=== PATIENT | female | born 1935 | race Caucasian/White ===

== ENCOUNTER 2018-02-27 20:52 | Emergency (ER) | payer OTHER ==
[2018-02-27] MEDS ORDERED: NA CHLORIDE 0.9% 500 ML ONE (21:20)
[2018-02-27 21:40] LABS: Absolute Lymphocytes (CBC) 1.8 K/uL (0.7-4.9); Absolute Monocytes 1.2 K/uL (0.1-1.3); Absolute Neutrophil 5.8 K/uL (1.8-8.0); Basophils % 0.9 % (0-1.3); Eosinophils % 1.6 % (0-4.4); Hematocrit 28.1 % (36.0-45.0); MCH 34.2 pg (27.0-35.0); MCV 102.7 fL (80-100); MPV 9.9 fL (7.6-11.3); Monocytes % 13.3 % (3.3-12.3); RBC Red Blood Cell Count 2.74 M/uL (3.86-4.86)
--- NOTE | 2018-02-27 21:49 | RAD REPORT ---
EXAM DESCRIPTION: RAD - Chest Single View - 02/27/2018 9:41 pm CLINICAL HISTORY: Fever, shortness of breath COMPARISON: March 2016 TECHNIQUE: AP portable chest image was obtained 2130 hours . FINDINGS: No peripheral mass or consolidation. Interstitial markings are prominent but not clearly d ifferent from comparison. Severity chronic disease could mask early infiltrates. Heart and vasculatur e are normal. No measurable pleural effusion and no pneumothorax. No gross bony abnormality seen. No acute aortic findings suspected. IMPRESSION: No acute cardiopulmonary process. Interstitial markings are not substantially different from comparison. Severity of chronic interstitial disease can mask early infiltrates.
[2018-02-27 21:50] LABS: Potassium 3.6 mEq/L (3.6-5.0)
--- NOTE | 2018-02-27 21:55 | RAD REPORT ---
EXAM DESCRIPTION: CT - Facial Bones W/ Mpr - 02/27/2018 9:32 pm CLINICAL HISTORY: Fall, left-sided facial trauma, anticoagulation therapy COMPARISON: None. TECHNIQUE: Axial 2 millimeter thick images of the facial bones were obtained with sagittal and coron al reconstruction imaging. All CT scans are performed using dose optimization technique as appropriate and may include automated exposure control or mA/KV adjustment according to patient size. FINDINGS: No facial bone fractures are identifiable. Mastoid air cells are clear. Paranasal sinuses are fully aerated. There is mild deviation of the left nasal septum. No globe or orbital content abno rmality seen. Condyles of the mandible are normally positioned. There is significant degenerative terry nge to each mandibular condyles. No air or foreign body. No significant contusion or hematoma changes identifiable in the soft tissues. No foreign body. IMPRESSION: No facial bone fracture or acute bone process. Advanced degenerative change at each TM j oint. No hematoma or other significant soft tissue finding. No foreign body.
--- NOTE | 2018-02-27 22:34 | ER ---
Nurse's Notes [facility] Name: Chen Zaldivar Age: 83 yrs Sex: Female : 1935 Arrival Date: 02/27/2018 Time: 20:56 Bed 27 Private MD: Diagnosis: Contusion left side face. S/P Fall. Fever. Presentation: 02/27 21:03 Presenting complaint: Patient states: this morning I had a fall from standing, pt la1 denies loc, is on blood thinners. pain to left side of face. Presenting complaint: Patient states: pt also reports fever tonight of 101 at home, tylenol taken at 1930. Transition of care: patient was not received from another setting of care. Onset of symptoms was February 27, 2018. Initial Sepsis Screen: Does the patient meet any 2 criteria? No. Patient's initial sepsis screen is negative. Does the patient have a suspected source of infection? No. Patient's initial sepsis screen is negative. Care prior to arrival: None. 21:03 Method Of Arrival: Wheelchair la1 21:03 Acuity: HAYDEN 3 la1 21:10 Mechanism of Injury: Fall from standing position. Trauma event details: Injury occurred lk1 in the [facility], Injury occurred: at home. Injury occurred: February 27, 2018 Injury occurred at: 09:30. Trauma Activation: Alert Physician: ED Physician; Name: ; Notified At: ; Arrived At: Physician: General Surgeon; Name: ; Notified At: ; Arrived At: Physician: Radiology; Name: ; Notified At: ; Arrived At: Physician: Respiratory; Name: ; Notified At: ; Arrived At: Physician: Lab; Name: ; Notified At: ; Arrived At: Historical: - Allergies: 21:07 Codeine; la1 21:07 Novocain; la1 21:07 Lidocaine; la1 - PMHx: 21:07 Hyperlipidemia; Hypertension; multiple myeloma; la1 - Immunization history:: Adult Immunizations up to date. - Social history:: Smoking status: Patient/guardian denies using tobacco. - Immunization history: Last tetanus immunization: - up to date. Screenin:10 Abuse screen: Denies threats or abuse. Denies injuries from another. Nutritional lk1 screening: No deficits noted. Tuberculosis screening: No symptoms or risk factors identified. Fall risk At risk due to age, immobility, prior history of falls, Intervention for positive screen: ED Physician notified, instructed to call for assist when getting up, side rails up. 21:10 Fall Risk Total Guillory Fall Scale indicates High Risk Score (45 or more points). Fall lk1 prevention measures have been instituted. Side Rails Up X 2 Placed Close to Nursing Station Frequent Obs/Assessments Occuring Family Present and informed to notify staff if the need to leave the bedside As available patient and family educated on Fall Prevention Program and Strategies. 21:10 Nutritional screening: No deficits noted. lk1 Primary Survey: 21:00 A: Airway: patent. Breathing/Chest: Respiratory pattern: regular, Respiratory effort: lk1 spontaneous, unlabored, Breath sounds: clear, bilaterally. Chest inspection: symmetrical rise and fall of the chest. Circulation: Heart tones present. Pulses: palpable right brachial artery, right dorsalis pedis artery, left brachial artery and left dorsalis pedis artery. Disability Alert. 21:10 Reassessment Airway Airway Patent Breathing/Chest Respiratory pattern Regular lk1 Respiratory effort Spontaneous Unlabored Circulation Heart rhythm Sinus rhythm Heart tones Present Pulses Palpable Color Mc[place] Temperature Warm Dry Disability Alert. Secondary Survey: 21:02 HEENT: Face Other pea sized abrasion to left cheekbone below left eye. lk1 Gastrointestinal: No deficits noted. : No deficits noted. Musculoskeletal: Swelling present in dorsum of right foot. Assessment: 21:05 General: Appears in no apparent distress. Behavior is calm, cooperative, appropriate lk1 for age. Pain: Denies pain. Vital Signs: 21:01 BP 156 / 63; Pulse 68; Resp 16; Temp 97.7(TE); Pulse Ox 96% on R/A; lk1 22:00 BP 148 / 62; Pulse 65; Resp 15; Pulse Ox 99% on R/A; Weight 71.67 kg (R); Height 5 ft. lk1 5 in. (165.10 cm) (R); Pain 0/10; 22:55 BP 145 / 59; Pulse 69; Resp 16; Temp 98.4(O); Pulse Ox 97% on R/A; Pain 0/10; lk1 22:00 Body Mass Index 26.29 (71.67 kg, 165.10 cm) lk1 Chris Coma Score: 21:01 Eye Response: spontaneous(4). Verbal Response: oriented(5). Motor Response: obeys lk1 commands(6). Total: 15. 22:00 Eye Response: spontaneous(4). Verbal Response: oriented(5). Motor Response: obeys lk1 commands(6). Total: 15. 22:55 Eye Response: spontaneous(4). Verbal Response: oriented(5). Motor Response: obeys lk1 commands(6). Total: 15. Trauma Score (Adult): 21:01 Eye Response: spontaneous(1); Verbal Response: oriented(1); Motor Response: obeys lk1 commands(2); Systolic BP: > 89 mm Hg(4); Respiratory Rate: 10 to 29 per min(4); Chris Score: 15; Trauma Score: 12 22:00 Eye Response: spontaneous(1); Verbal Response: oriented(1); Motor Response: obeys lk1 commands(2); Systolic BP: > 89 mm Hg(4); Respiratory Rate: 10 to 29 per min(4); [place] Score: 15; Trauma Score: 12 22:55 Eye Response: spontaneous(1); Verbal Response: oriented(1); Motor Response: obeys lk1 commands(2); Systolic BP: > 89 mm Hg(4); Respiratory Rate: 10 to 29 per min(4); [place] Score: 15; Trauma Score: 12 ED Course: 20:56 Patient arrived in ED. es 20:57 John Polo MD is Attending Physician. pkl 21:00 Arm band placed on right wrist. lk1 21:05 Patient maintains SpO2 saturation greater than 95% on room air. Thermoregulation: warm lk1 blanket given to patient. 21:05 Patient has correct armband on for positive identification. Bed in low position. Call lk1 light in reach. Side rails up X2. Adult w/ patient. 21:06 Triage completed. la1 21:12 Mara Myers, JULIET is Primary Nurse. lk1 21:32 CT completed. Patient moved to CT via wheelchair. Patient moved back from CT. cw1 21:33 CT Facial Bones W/O Con In Process Unspecified. EDMS 21:33 Initial lab(s) drawn, by me, sent to lab. Inserted saline lock: 22 gauge in right dh3 antecubital area, using aseptic technique. Blood collected. 21:40 X-ray completed. Patient tolerated procedure well. bb2 21:40 Patient moved back from radiology. bb2 21:40 XRAY CXR (1 view) In Process Unspecified. EDMS 22:55 No provider procedures requiring assistance completed. IV discontinued, intact, lk1 bleeding controlled, No redness/swelling at site. Pressure dressing applied. Administered Medications: 21:45 Drug: NS 0.9% 500 ml Route: IV; Rate: 100 calculated rate; Site: right antecubital; lk1 22:00 Follow up: Response: No adverse reaction; IV Status: Completed infusion; Order to lk1 discontinue infusion Intake: 21:01 PO: 0ml; Total: 0ml. lk1 22:00 PO: 0ml; Total: 0ml. lk1 22:55 PO: 120ml; IV: 250ml (IV Fluid); Total: 370ml. lk1 Output: 21:01 Urine: 0ml; Total: 0ml. lk1 22:00 Urine: 0ml; Total: 0ml. lk1 22:55 Urine: 150ml; Total: 150ml. lk1 Outcome: 22:33 Discharge ordered by . pkcaitlin 22:56 Discharged to home via wheelchair, with family. lk1 22:56 Condition: good 22:56 Discharge instructions given to patient, family, Instructed on discharge instructions, follow up and referral plans. safety practices, Demonstrated understanding of instructions, follow-up care, medications. 22:56 Patient's length of stay was not longer than 2 hours. 22:57 Patient left the ED. lk1 Signatures: Dispatcher [employer] [facility] John Polo MD MD pkl Salyer, Edna es Woodley, Crystal 1 Jim Wiggins RN RN leah1 Mara Myers RN RN lk1 Naty Greenberg 3 Eunice Simms bb2
--- NOTE | 2018-02-27 22:34 | EDPHYS ---
Physician Documentation [facility] Name: Chen Zaldivar Age: 83 yrs Sex: Female : 1935 Arrival Date: 02/27/2018 Time: 20:56 Bed 27 Private MD: ED Physician John Polo HPI: 02/27 21:17 This 83 yrs old Female presents to ER via Wheelchair with complaints of pkl Fever, Fall Injury, Swelling of Lower Extremity. 21:17 Details of fall: The patient fell from an upright position. Onset: The symptoms/episode pkl began/occurred just prior to arrival. Associated injuries: The patient sustained injury to the head, contusion. Has fever 101 earlier today. Historical: - Allergies: 21:07 Codeine; la1 21:07 Novocain; la1 21:07 Lidocaine; la1 - PMHx: 21:07 Hyperlipidemia; Hypertension; multiple myeloma; la1 - Immunization history:: Adult Immunizations up to date. - Social history:: Smoking status: Patient/guardian denies using tobacco. - Immunization history: Last tetanus immunization: - up to date. ROS: 21:19 Eyes: Negative for injury, pain, redness, and discharge, ENT: Negative for injury, pkl pain, and discharge, Neck: Negative for injury, pain, and swelling, Cardiovascular: Negative for chest pain, palpitations, and edema, Respiratory: Negative for shortness of breath, cough, wheezing, and pleuritic chest pain. 21:19 Abdomen/GI: Positive for diarrhea. 21:19 Back: Negative for acute changes. 21:19 : Negative for urinary symptoms. 21:19 MS/extremity: Negative for acute changes. 21:19 Skin: Negative for rash. 21:19 Neuro: Negative for altered mental status. Exam: 21:19 Eyes: Pupils equal round and reactive to light, extra-ocular motions intact. Lids and pkl lashes normal. Conjunctiva and sclera are non-icteric and not injected. Cornea within normal limits. Periorbital areas with no swelling, redness, or edema. 21:19 Head/face: Noted is contusion, of the left side face. 21:19 ENT: Exam is negative for acute changes. 21:19 Neck: Exam negative for obvious evidence of injury or deformity, nuchal rigidity. 21:19 Chest/axilla: Exam negative for acute changes. 21:19 Cardiovascular: Rate: normal, Rhythm: regular. 21:19 Respiratory: the patient does not display signs of respiratory distress, Respirations: normal, Breath sounds: are clear throughout. 21:19 Abdomen/GI: Bowel sounds: normal, Palpation: abdomen is soft and non-tender, in all quadrants. 21:19 Back: Exam negative for acute changes. 21:19 : Exam negative for acute changes. 21:19 Musculoskeletal/extremity: Exam is negative for acute changes. 21:19 Skin: Exam negative for rash. 21:19 Neuro: Orientation: is normal, Mentation: is normal, Cranial nerves: grossly normal, Motor: is normal. Vital Signs: 21:01 BP 156 / 63; Pulse 68; Resp 16; Temp 97.7(TE); Pulse Ox 96% on R/A; lk1 22:00 BP 148 / 62; Pulse 65; Resp 15; Pulse Ox 99% on R/A; Weight 71.67 kg (R); Height 5 ft. lk1 5 in. (165.10 cm) (R); Pain 0/10; 22:55 BP 145 / 59; Pulse 69; Resp 16; Temp 98.4(O); Pulse Ox 97% on R/A; Pain 0/10; lk1 22:00 Body Mass Index 26.29 (71.67 kg, 165.10 cm) lk1 [place]ancock Coma Score: 21:01 Eye Response: spontaneous(4). Verbal Response: oriented(5). Motor Response: obeys lk1 commands(6). Total: 15. 22:00 Eye Response: spontaneous(4). Verbal Response: oriented(5). Motor Response: obeys lk1 commands(6). Total: 15. 22:55 Eye Response: spontaneous(4). Verbal Response: oriented(5). Motor Response: obeys lk1 commands(6). Total: 15. Trauma Score (Adult): 21:01 Eye Response: spontaneous(1); Verbal Response: oriented(1); Motor Response: obeys lk1 commands(2); Systolic BP: > 89 mm Hg(4); Respiratory Rate: 10 to 29 per min(4); [place]ancock Score: 15; Trauma Score: 12 22:00 Eye Response: spontaneous(1); Verbal Response: oriented(1); Motor Response: obeys lk1 commands(2); Systolic BP: > 89 mm Hg(4); Respiratory Rate: 10 to 29 per min(4); Chris Score: 15; Trauma Score: 12 22:55 Eye Response: spontaneous(1); Verbal Response: oriented(1); Motor Response: obeys lk1 commands(2); Systolic BP: > 89 mm Hg(4); Respiratory Rate: 10 to 29 per min(4); Chris Score: 15; Trauma Score: 12 MDM: 20:57 Patient medically screened. [facility] 22:07 Data reviewed: vital signs, nurses notes, lab test result(s), radiologic studies. [facility] 02/27 21:16 Order name: CBC with Diff; Complete Time: :58 [facility] 02/27 21:16 Order name: Chem 7; Complete Time: :58 [facility] 02/27 21:16 Order name: XRAY CXR (1 view); Complete Time: :58 [facility] 02/27 21:16 Order name: CT Facial Bones W/O Con; Complete Time: :58 [facility] 02/27 22:36 Order name: Urine Dipstick--Ancillary (enter results); Complete Time: 23:19 mw2 Administered Medications: 21:45 Drug: NS 0.9% 500 ml Route: IV; Rate: 100 calculated rate; Site: right antecubital; lk1 22:00 Follow up: Response: No adverse reaction; IV Status: Completed infusion; Order to lk discontinue infusion Disposition: 02/27/18 22:33 Discharged to Home. Impression: Contusion left side face. S/P Fall. Fever. . - Condition is Stable. - Medication Reconciliation Form, Thank You Letter, Antibiotic Education, Prescription Opioid Use form. - Follow up: Private Physician; When: 2 - 3 days; Reason: Re-evaluation by your physician. - Problem is new. - Symptoms have improved. Signatures: Dispatcher [employer] EDMS John Polo MD MD l Jim Wiggins RN RN la1 Mara Myers RN RN lk1 Corrections: (The following items were deleted from the chart) 22:57 22:33 02/27/2018 22:33 Discharged to Home. Impression: Contusion left side face. S/P lk1 Fall. Fever. . Condition is Stable. Forms are Medication Reconciliation Form, Thank You Letter, Antibiotic Education, Prescription Opioid Use. Follow up: Private Physician; When: 2 - 3 days; Reason: Re-evaluation by your physician. Problem is new. Symptoms have improved. pkl
[2018-02-27 22:41] LABS: Urine Blood TRACE (NEG); Urine Glucose NEGATIVE (NEG); Urine Protein 1+ (NEG); Urine Specific Gravity 1.015 (1.005-1.030); Urine pH 6.5 (5.0-7.0)
== END 2018-02-27 22:57 | disposition home or self-care (01) ==
LOC: ER 20:52
DX: S00.83XA Contusion of other part of head, initial encounter (principal); W18.39XA Other fall on same level, initial encounter; Y93.89 Activity, other specified; Y92.009 Unspecified place in unspecified non-institutional (private) residence as the place of occurrence of the external cause; Z88.4 Allergy status to anesthetic agent; Z88.5 Allergy status to narcotic agent; I10 Essential (primary) hypertension
CPT/HCPCS: 36415; 70486; 71045; 76377; 80048; 81003; 85025; 99285

== ENCOUNTER 2018-05-28 19:17 | Observation (INO) | payer OTHER ==
--- OUTSIDE RECORDS SUMMARY | 2018-05-28 19:20 | XMS REPORT ---
:1935 Author Organization [facility] Address [address] [place] [address] [address]. [address] [place] [address] Care Team Providers Name Role Phone UNKNOWN, REFFERING Primary Care Provider Unavailable ARGELIA MAYNARD Unavailable Unavailable Problems This patient has no known problems. Allergies, Adverse Reactions, Alerts This patient has no known allergies or adverse reactions. Medications This patient has no known medications. Encounters Start End Encounter Admission Attending Care Care Encounter Date/Time Date/Time Type Type Clinicians Facility Department ID 2018-02-03 2018-02-03 [id number] 19:25:00 19:25:00 ARGELIA 2017-09-29 2017-09-29 [id number] 21:23:00 21:23:00 ARGELIA Results Test Description Test Time Test Comments Text Results Atomic Results Result Comments D-Dimer, Quantitative 2018-02-03 22:23:00 Test Item Value Reference Range Comments D-Dimer, Quant (test code=DDQNT) 649 ng/mL 0-500 D-Dimer, [id number] 00:14:00 Test Item Value Reference Range Comments D-Dimer, Quant (test 396 ng/mL 0-500 Please note Change in unit of code=DDQNT) measure from mg/L FEU to ng/mLA cutoff of less than 500 ng/mL DD has a negative predictive value of100% for DVT gln005% for PE.When using D-Dimer to help rule out DVT or PE, clinical information anddisease probability should be considered.Elevated D-Dimer values are not specific for thromboembolism. CBC with [id number] 00:14:00 Test Item Value Reference Range Comments WBC (test code=WBC) 11.3 K/cumm 4.4-10.5 RBC (test code=RBC) 3.61 M/cumm 3.75-5.20 Hemoglobin (test code=HGB) 11.7 gm/dL 12.2-14.8 Hematocrit (test code=HCT) 37.3 % 36.5-44.4 MCV (test code=MCV) 103.3 fL 80-100 MCH (test code=MCH) 32.4 pg 27.0-32.5 MCHC (test code=MCHC) 31.3 g/dL 32.0-37.5 RDW (test code=RDW) 16.3 % 11.5-14.5 Platelet Count (test code=PLTCT) 210 K/cumm 140-440 MPV (test code=MPV) 9.1 fL Diff Method (test code=DIFFM) Auto Neutrophil (test code=NEUT) 84.7 % 36-70 Lymphocyte (test code=LYMPH) 12.5 % 12-44 Monocyte (test code=MONO) 2.6 % 0-11 Eosinophil (test code=EOS) 0.1 % 0-7 Basophil (test code=BASO) 0.1 % 0-2 Neutro Abs (test code=ANEUT) 9.6 K/cumm 1.6-7.4 Lymph Abs (test code=ALYMPH) 1.4 K/cumm 0.5-4.6 Thomas Abs (test code=AMONO) 0.3 K/cumm 0.0-1.2 Eos Abs (test code=AEOS) 0.01 K/cumm 0.00-0.74 Baso Abs (test code=ABASO) 0.0 K/cumm 0.00-0.21 Macrocytosis (test code=MACRO) Slight [id number] 00:10:00 Test Item Value Reference Range Comments NT ProBnp (test code=PBNP) 811 pg/mL 0-449 Comprehensive Metabolic [id number] 00:10:00 Test Item Value Reference Range Comments Sodium (test code=NA) 134 mmol/L 135-145 Potassium (test code=K) 4.8 mmol/L 3.5-5.1 Chloride (test code=CL) 97 mmol/L 98-105 Carbon Dioxide (test 22 mmol/L 22-29 code=CO2) Glucose (test code=GLU) 126 mg/dL 70-115 Blood Urea Nitrogen (test 35 mg/dL 8-23 code=BUN) Creatinine (test 1.7 mg/dL 0.5-0.9 code=CREAT) Calcium (test code=CA) 9.0 mg/dL 8.3-10.5 Prot Total (test code=TP) 7.4 g/dL 6.4-8.3 Albumin (test code=ALB) 4.5 g/dL 3.5-5.2 A/G Ratio (test 1.6 Ratio code=AGRATIO) Globulin (test code=GLOB) 2.9 2.9-3.1 Bili Total (test 0.6 mg/dL 0.1-0.9 code=TBIL) Alk Phos (test 99 U/L 35-104 code=APHOS) AST (test code=AST) 15 U/L 1-32 ALT (test code=ALT) 15 U/L 1-33 BUN/Creatinine Ratio 20.6 (test code=BCRATIO) Anion Gap (test 15 mmol/L 7-16 code=AGAP) Estimated GFR (test 31 mL/min/1.73m2 eGFR (estimated Glomerular code=GFR) Filtration Rate) is an estimated value,calculated from the patient's serum creatinine using the MDRD equation.It is NOT the patient's actual GFR. The eGFR provides a more clinicallyuseful measure of kidney disease than serum creatinine alone.This calculation takes sex and race into account, if the informationis provided. If the race is not provided, and the patient isAfrican-Monegasque, multiply by 1.212. If sex is not provided, and thepatient is female, multiply by 0.742. Results for patients <18 years ofage have not been validated by the MDRD study and should be interpretedwith caution.eGFR Result Interpretation:eGFR > or=60 is in the Normal RangeeGFR < 60 may mean kidney diseaseeGFR < 15 may mean kidney failureRanges recommended by the National Kidney Foundation,http://nkdep.nih .gov Lipid [id number] 00:10:00 Test Item Value Reference Range Comments Cholesterol (test 260 mg/dL 0-200 code=CHOL) Triglycerides (test 88 mg/dL 9-200 code=TRIG) HDL (test code=HDL) 111 mg/dL 50-60 Chol/HDL (test 2.3 Ratio 0.0-4.4 code=CHOLPHDL) LDL, Calculated (test 131 mg/dL 0-130 (NOTE)RISK OF HEART code=LDLC) DISEASEPublished by Monegasque Heart AssociationAnalyte Optimal Boderline Increased RiskCHOL <200 200-239 >240TRIG <150 150-199 >200HDL Male: >60 <40HDL Female: >60 <50LDL <100 130-159 >160LDL NEAR OPTIMAL IS 100-129 VLDL (test code=VLDL) 18 mg/dL 5-40 LDL/HDL (test code=LDLPHDL) 1
[2018-05-28 20:22] LABS: Absolute Lymphocytes (CBC) 1.7 K/uL (0.7-4.9); Absolute Monocytes 0.3 K/uL (0.1-1.3); Basophils % 0.3 % (0-1.3); Eosinophils % 1.3 % (0-4.4); Hematocrit 28.6 % (36.0-45.0); Lymphocytes % 33.7 % (15.3-44.8); MCH 33.3 pg (27.0-35.0); MCV 99.9 fL (80-100); MPV 9.9 fL (7.6-11.3); Monocytes % 5.3 % (3.3-12.3); RBC Red Blood Cell Count 2.86 M/uL (3.86-4.86)
[2018-05-28] MEDS ORDERED: ACETAMINOPHEN 325 MG TABLET ONE (20:24)
[2018-05-28] MEDS ORDERED: NA CHLORIDE 0.9% 1,000 ML ONE (20:24)
[2018-05-28] MEDS ORDERED: AZITHROMYCIN 500 MG/250 ML BAG ONE (20:24)
[2018-05-28 20:26] LABS: Protime INR 1.52
[2018-05-28 20:53] LABS: Potassium 3.3 mmol/L (3.5-5.1)
[2018-05-28 20:54] LABS: Albumin 3.3 g/dL (3.4-5.0); Bilirubin Direct 0.2 mg/dL (0-0.2); Bilirubin Total 0.4 mg/dL (0.2-1.0); C-Reactive Protein 29.7 mg/L (<3.00); CKMB Creatine Kinase MB 2.1 ng/mL (0.3-3.6); Protein, Total 6.1 g/dL (6.4-8.2)
[2018-05-28 20:54] LABS: Urine Blood TRACE (NEG); Urine Glucose NEGATIVE (NEG); Urine Protein 1+ (NEG); Urine Specific Gravity 1.015 (1.005-1.030); Urine pH 6.5 (5.0-7.0)
[2018-05-28 20:59] LABS: Urine Bacteria <20 /HPF (<20); Urine RBC <5 /HPF (NONE SEEN)
[2018-05-28 21:00] LABS: Urine Culture Reflex Order NOT NEEDED; Urine Yeast FEW (NONE SEEN); Urine Yeast with Hyphae PRESENT
[2018-05-28] MEDS ORDERED: CEFEPIME 2 GM VIAL ONE (21:00)
[2018-05-28] MEDS ORDERED: NA CHLORIDE 0.9% 100 ML IV ONE (21:00)
--- NOTE | 2018-05-28 21:11 | RAD REPORT ---
EXAM DESCRIPTION: RAD - Chest Single View - 05/28/2018 8:22 pm CLINICAL HISTORY: Fever, dysuria, cancer history COMPARISON: February 27 TECHNIQUE: AP portable chest image was obtained 2007 hours . FINDINGS: No focal pneumonia. Lung markings are prominent but stable. Heart size and vasculature are stable. The vasculature is mildly prominent but significant failure or volume overload doubtful. Tra roman is midline. No measurable pleural effusion and no pneumothorax. No gross bony abnormality seen. No acute aortic findings suspected. IMPRESSION: No acute cardiopulmonary process. Chest findings are not clearly different from February 27.
[2018-05-28] MEDS ORDERED: ONDANSETRON 4 MG/2 ML VIAL IV PRN (21:55)
[2018-05-28] MEDS ORDERED: NA CHLORIDE 0.9% 1,000 ML IV SCH (22:00)
[2018-05-28] MEDS ORDERED: POTASSIUM CL SA 10 MEQ TAB PO ONE (22:16)
--- NOTE | 2018-05-28 22:36 | EDPHYS ---
Physician Documentation [facility] Name: Chen Zaldivar Age: 83 yrs Sex: Female : 1935 Arrival Date: 05/28/2018 Time: 19:21 Bed 6 Private MD: ED Physician Ross Diaz HPI: 05/28 20:17 This 83 yrs old Female presents to ER via Wheelchair with complaints of terry Fever, Productive Cough, CANCER PATIENT. 20:17 The patient reports fever, that was measured at 100.4 degrees Fahrenheit. Onset: The terry symptoms/episode began/occurred 2 day(s) ago. Onset: The symptoms/episode began/occurred. Modifying factors: there are no obvious modifying factors. Associated signs and symptoms: Pertinent positives: cough, runny nose, sinus congestion, sinus drainage. Severity of symptoms: At their worst the symptoms were mild moderate in the emergency department the symptoms are unchanged. The patient has not experienced similar symptoms in the past. Historical: - Allergies: 19:57 Codeine; bb 19:57 Lidocaine; bb 19:57 Novocain; bb - Home Meds: 19:57 allopurinol 100 mg Oral tab 1 tab 3 times per day [Active]; aspirin 81 mg Oral TbEC 1 bb tab once daily [Active]; carvedilol 6.25 mg Oral tab 1 tab 2 times per day [Active]; clonidine HCl 0.1 mg Oral tab 1 tab 2 times per day [Active]; Revlimid 5 mg oral cap 1 cap twice a day [Active]; tramadol 50 mg Oral tab 1 tab every 6 hours [Active]; gabapentin 300 mg oral cap 1 cap 3 times per day [Active]; pravastatin 10 mg oral tab 1 tab once daily [Active]; Eliquis 5 mg oral tab 1 tab 2 times per day [Active]; Calcium [Active]; Chemo twice a week [Active]; - PMHx: 19:57 Hyperlipidemia; Hypertension; multiple myeloma; CHF; bb - PSHx: 19:57 Hysterectomy; bb - Immunization history:: Adult Immunizations up to date. - Social history:: Smoking status: Patient/guardian denies using tobacco, Patient/guardian denies using alcohol, street drugs. - Family history:: not pertinent. - Ebola Screening: : No symptoms or risks identified at this time. ROS: 20:17 Eyes: Negative for injury, pain, redness, and discharge, ENT: Negative for injury, terry pain, and discharge, Neck: Negative for injury, pain, and swelling, Cardiovascular: Negative for chest pain, palpitations, and edema, Abdomen/GI: Negative for abdominal pain, nausea, vomiting, diarrhea, and constipation, Back: Negative for injury and pain, : Negative for injury, bleeding, discharge, and swelling, MS/Extremity: Negative for injury and deformity, Skin: Negative for injury, rash, and discoloration, Neuro: Negative for headache, weakness, numbness, tingling, and seizure, Psych: Negative for depression, anxiety, suicide ideation, homicidal ideation, and hallucinations, Allergy/Immunology: Negative for hives, rash, and allergies, Endocrine: Negative for neck swelling, polydipsia, polyuria, polyphagia, and marked weight changes, Hematologic/Lymphatic: Negative for swollen nodes, abnormal bleeding, and unusual bruising. 20:17 Constitutional: Positive for body aches, fever. 20:17 ENT: Positive for hoarseness. Exam: 20:17 Constitutional: This is a well developed, well nourished patient who is awake, alert, terry and in no acute distress. Head/Face: Normocephalic, atraumatic. Eyes: Pupils equal round and reactive to light, extra-ocular motions intact. Lids and lashes normal. Conjunctiva and sclera are non-icteric and not injected. Cornea within normal limits. Periorbital areas with no swelling, redness, or edema. ENT: Nares patent. No nasal discharge, no septal abnormalities noted. Tympanic membranes are normal and external auditory canals are clear. Oropharynx with no redness, swelling, or masses, exudates, or evidence of obstruction, uvula midline. Mucous membranes moist. Neck: Trachea midline, no thyromegaly or masses palpated, and no cervical lymphadenopathy. Supple, full range of motion without nuchal rigidity, or vertebral point tenderness. No Meningismus. Chest/axilla: Normal chest wall appearance and motion. Nontender with no deformity. No lesions are appreciated. Cardiovascular: Regular rate and rhythm with a normal S1 and S2. No gallops, murmurs, or rubs. Normal PMI, no JVD. No pulse deficits. Abdomen/GI: Soft, non-tender, with normal bowel sounds. No distension or tympany. No guarding or rebound. No evidence of tenderness throughout. Back: No spinal tenderness. No costovertebral tenderness. Full range of motion. Female : Normal external genitalia. Skin: Warm, dry with normal turgor. Normal color with no rashes, no lesions, and no evidence of cellulitis. MS/ Extremity: Pulses equal, no cyanosis. Neurovascular intact. Full, normal range of motion. Neuro: Awake and alert, GCS 15, oriented to person, place, time, and situation. Cranial nerves II-XII grossly intact. Motor strength 5/5 in all extremities. Sensory grossly intact. Cerebellar exam normal. Normal gait. Psych: Awake, alert, with orientation to person, place and time. Behavior, mood, and affect are within normal limits. 20:17 Respiratory: mild respiratory distress is noted, moderate respiratory distress is noted. Vital Signs: 19:30 BP 219 / 75; Pulse 88; Resp 18 S; Temp 100.4(O); Pulse Ox 94% on R/A; Weight 67.13 kg bb (R); Height 5 ft. 2 in. (157.48 cm) (R); Pain 9/10; 20:14 BP 193 / 72; tl2 21:06 BP 187 / 103; Pulse 91; Resp 22; Pulse Ox 93% on R/A; tl2 21:40 BP 179 / 72; Pulse 87; Resp 20; Temp 99.1(O); Pulse Ox 92% on R/A; tl2 22:32 BP 182 / 73; Pulse 80; Resp 20; Pulse Ox 93% on R/A; tl2 19:30 Body Mass Index 27.07 (67.13 kg, 157.48 cm) MDM: 20:12 Patient medically screened. [facility] 20:17 Data reviewed: vital signs, nurses notes, lab test result(s), EKG, radiologic studies, [facility] plain films. 05/28 19:53 Order name: Urine Microscopic Only [facility] 05/28 19:53 Order name: Urine Culture [facility] 05/28 19:53 Order name: Amylase, Serum [facility] 05/28 19:53 Order name: Basic Metabolic Panel; Complete Time: 21:46 [facility] 05/28 19:53 Order name: Blood Culture Adult (2) [facility] 05/28 19:53 Order name: C-Reactive Protein; Complete Time: 21:46 [facility] 05/28 19:53 Order name: CBC with Diff; Complete Time: 21:46 2 05/28 19:53 Order name: Ckmb; Complete Time: 21:46 2 05/28 19:53 Order name: CPK; Complete Time: 21:46 2 05/28 19:53 Order name: Lactate; Complete Time: 21:46 2 05/28 19:53 Order name: LFT's; Complete Time: 21:46 2 05/28 19:53 Order name: Lipase; Complete Time: 21:46 2 05/28 19:53 Order name: Procalcitonin; Complete Time: 21:46 2 05/28 19:53 Order name: Protime (+inr); Complete Time: 21:46 2 05/28 19:53 Order name: Ptt, Activated; Complete Time: 21:46 2 05/28 19:53 Order name: Sed Rate; Complete Time: 21:46 2 05/28 19:53 Order name: Troponin (emerg Dept Use Only); Complete Time: 21:46 2 05/28 19:53 Order name: Chest Single View XRAY; Complete Time: 21:46 2 05/28 19:54 Order name: Urine Microscopic Only; Complete Time: 21:46 [facility] 05/28 19:54 Order name: Urine Culture [facility] 05/28 19:54 Order name: Amylase Level; Complete Time: 21:46 [facility] 05/28 20:16 Order name: Flu; Complete Time: 21:46 [facility] 05/28 20:47 Order name: Urine Dipstick--Ancillary (enter results) [facility] 05/28 20:55 Order name: Urine Dipstick-Ancillary; Complete Time: 21:46 [facility] 05/28 19:53 Order name: Cardiac monitoring; Complete Time: 20:15 2 05/28 19:53 Order name: EKG - Nurse/Tech; Complete Time: 21:01 [facility] 05/28 19:53 Order name: IV Saline Lock - Large Bore; Complete Time: 20:15 2 05/28 19:53 Order name: Labs collected and sent; Complete Time: 20:15 2 05/28 19:53 Order name: O2 Per Protocol; Complete Time: 20:15 2 05/28 19:53 Order name: O2 Sat Monitoring; Complete Time: 20:15 tl2 05/28 19:53 Order name: Urine Dipstick-Ancillary (obtain specimen); Complete Time: 20:14 tl2 Administered Medications: 20:46 Drug: Tylenol 650 mg Route: PO; tl2 21:40 Follow up: Response: No adverse reaction; Temperature is decreased tl2 20:46 Drug: Zithromax 500 mg Route: IVPB; Infused Over: 1 hrs; Site: right antecubital; tl2 21:40 Follow up: IV Status: Completed infusion tl2 20:47 Drug: NS 0.9% (30 ml/kg) 30 ml/kg Route: IV; Rate: bolus; Site: right antecubital; tl2 22:18 Follow up: IV Status: Completed infusion aa1 21:39 Drug: Cefepime 2 grams Route: IVPB; Rate: 200 ml/hr; Infused Over: 30 mins; Site: right tl2 antecubital; 22:24 Follow up: IV Status: Infusion continued upon admission aa1 22:15 Not Given (Other Intervention Used): Potassium Chloride 20 mEq PO once aa1 22:15 Drug: Potassium Chloride 20 mEq Route: PO; aa1 22:24 Follow up: Response: No adverse reaction; Medication administered at discharge. aa1 Disposition: 05/28/18 20:26 Hospitalization ordered by Patric Sol for Observation. Preliminary diagnosis are Fever, unspecified, Weakness, Pneumonia due to other specified bacteria, Hypokalemia, Anemia, unspecified. - Bed requested for Telemetry/MedSurg (observation). - Status is Observation. tl2 - Condition is Fair. - Problem is new. - Symptoms have improved. UTI on Admission? No Signatures: Dispatcher [employer] EDAR Siena Urrutia RN RN aa1 Ross Diaz MD MD cha Ballard, Brenda, RN RN bb Tracie Choudhary RN RN tl2 Corrections: (The following items were deleted from the chart) 20:33 20:26 Hospitalization Ordered by Patric Sol MD for Observation. Preliminary bb diagnosis is Fever, unspecified; Weakness; Pneumonia due to other specified bacteria. Bed requested for Telemetry/MedSurg (observation). Status is Observation. Condition is Fair. Problem is new. Symptoms have improved. UTI on Admission? No. terry 21:07 19:53 Accucheck ordered. tl2 cc 21:50 20:33 05/28/2018 20:26 Hospitalization Ordered by Patric Sol MD for Observation. terry Preliminary diagnosis is Fever, unspecified; Weakness; Pneumonia due to other specified bacteria. Bed requested for Telemetry/MedSurg (observation). Status is Observation. Condition is Fair. Problem is new. Symptoms have improved. UTI on Admission? No. bb 22:35 21:50 05/28/2018 20:26 Hospitalization Ordered by Patric Sol MD for Observation. tl2 Preliminary diagnosis is Fever, unspecified; Weakness; Pneumonia due to other specified bacteria; Hypokalemia; Anemia, unspecified. Bed requested for Telemetry/MedSurg (observation). Status is Observation. Condition is Fair. Problem is new. Symptoms have improved. UTI on Admission? No. terry
--- NOTE | 2018-05-28 22:36 | ER ---
Nurse's Notes [facility] Name: Chen Zaldivar Age: 83 yrs Sex: Female : 1935 Arrival Date: 05/28/2018 Time: 19:21 Bed 6 Private MD: Diagnosis: Fever, unspecified;Weakness;Pneumonia due to other specified bacteria;Hypokalemia;Anemia, unspecified Presentation: 05/28 19:25 Presenting complaint: Patient states: she is a cancer pt and she started running a bb fever today, has a cough and runny nose since yesterday, last night started having burning with urination, pt's recently. Transition of care: patient was not received from another setting of care. Onset of symptoms was May 27, 2018. Risk Assessment: Do you want to hurt yourself or someone else? Patient reports no desire to harm self or others. Initial Sepsis Screen: Does the patient meet any 2 criteria? No. Patient's initial sepsis screen is negative. Does the patient have a suspected source of infection? Yes: Productive cough/pneumonia Dysuria/Frequency/Urgency/UTI. Care prior to arrival: None. 19:25 Method Of Arrival: Wheelchair bb 19:25 Acuity: HAYDEN 2 bb Historical: - Allergies: 19:57 Codeine; bb 19:57 Lidocaine; bb 19:57 Novocain; bb - Home Meds: 19:57 allopurinol 100 mg Oral tab 1 tab 3 times per day [Active]; aspirin 81 mg Oral TbEC 1 bb tab once daily [Active]; carvedilol 6.25 mg Oral tab 1 tab 2 times per day [Active]; clonidine HCl 0.1 mg Oral tab 1 tab 2 times per day [Active]; Revlimid 5 mg oral cap 1 cap twice a day [Active]; tramadol 50 mg Oral tab 1 tab every 6 hours [Active]; gabapentin 300 mg oral cap 1 cap 3 times per day [Active]; pravastatin 10 mg oral tab 1 tab once daily [Active]; Eliquis 5 mg oral tab 1 tab 2 times per day [Active]; Calcium [Active]; Chemo twice a week [Active]; - PMHx: 19:57 Hyperlipidemia; Hypertension; multiple myeloma; CHF; bb - PSHx: 19:57 Hysterectomy; bb - Immunization history:: Adult Immunizations up to date. - Social history:: Smoking status: Patient/guardian denies using tobacco, Patient/guardian denies using alcohol, street drugs. - Family history:: not pertinent. - Ebola Screening: : No symptoms or risks identified at this time. Screenin:30 Abuse screen: Denies threats or abuse. Nutritional screening: No deficits noted. tl2 Tuberculosis screening: No symptoms or risk factors identified. Fall Risk IV access (20 points). Gait- Weak (10 pts.). Assessment: 19:30 General: Appears in no apparent distress. uncomfortable, Behavior is cooperative, tl2 appropriate for age, anxious, Reports fever for feeling ill for. Pain: Denies pain. Neuro: Level of Consciousness is awake, alert, obeys commands, Oriented to person, place, time, situation. Cardiovascular: Denies chest pain, Rhythm is sinus rhythm. Respiratory: Reports cough that is hacking, Airway is patent Respiratory effort is even, unlabored, Respiratory pattern is regular, symmetrical, Breath sounds are clear bilaterally. GI: No signs and/or symptoms were reported involving the gastrointestinal system. : No signs and/or symptoms were reported regarding the genitourinary system. Derm: Skin is pink, warm \T\ dry. 20:30 Reassessment: Patient appears in no apparent distress at this time. No changes from tl2 previously documented assessment. Patient and/or family updated on plan of care and expected duration. Pain level reassessed. Patient is alert, oriented x 3, equal unlabored respirations, skin warm/dry/pink. 21:58 Reassessment: Patient appears in no apparent distress at this time. Patient and/or aa1 family updated on plan of care and expected duration. Pain level reassessed. Patient is alert, oriented x 3, equal unlabored respirations, skin warm/dry/pink. Pt has bed assignment however is still awaiting admission orders from admitting doctor, Dr. Sol. Vital Signs: 19:30 BP 219 / 75; Pulse 88; Resp 18 S; Temp 100.4(O); Pulse Ox 94% on R/A; Weight 67.13 kg bb (R); Height 5 ft. 2 in. (157.48 cm) (R); Pain 9/10; 20:14 BP 193 / 72; tl2 21:06 BP 187 / 103; Pulse 91; Resp 22; Pulse Ox 93% on R/A; tl2 21:40 BP 179 / 72; Pulse 87; Resp 20; Temp 99.1(O); Pulse Ox 92% on R/A; tl2 22:32 BP 182 / 73; Pulse 80; Resp 20; Pulse Ox 93% on R/A; tl2 19:30 Body Mass Index 27.07 (67.13 kg, 157.48 cm) bb ED Course: 19:21 Patient arrived in ED. al2 19:30 No provider procedures requiring assistance completed. tl2 19:30 Arm band placed on Patient placed in an exam room, on a stretcher, on pulse oximetry. bb Family accompanied patient. 19:30 Patient has correct armband on for positive identification. Placed in gown. Bed in low tl2 position. Call light in reach. Side rails up X2. Adult w/ patient. 19:47 Inserted saline lock: 20 gauge in right antecubital area, using aseptic technique. tl2 Blood collected. 19:52 Triage completed. bb 20:11 Leo Bautista MD is Attending Physician. gs 20:12 Attending Physician role handed off by Leo Bautista MD terry 20:12 Ross Diaz MD is Attending Physician. terry 20:13 Tracie Choudhary, JULIET is Primary Nurse. tl2 20:18 X-ray completed. Portable x-ray completed in exam room. Patient tolerated procedure ml well. 20:18 Chest Single View XRAY In Process Unspecified. EDMS 20:24 Patric Sol MD is Hospitalizing Provider. terry 21:02 Flu Sent. tl2 21:58 Cleaned of incontinence. Linen changed. aa1 22:33 Patient admitted, IV remains in place. tl2 Administered Medications: 20:46 Drug: Tylenol 650 mg Route: PO; tl2 21:40 Follow up: Response: No adverse reaction; Temperature is decreased tl2 20:46 Drug: Zithromax 500 mg Route: IVPB; Infused Over: 1 hrs; Site: right antecubital; tl2 21:40 Follow up: IV Status: Completed infusion tl2 20:47 Drug: NS 0.9% (30 ml/kg) 30 ml/kg Route: IV; Rate: bolus; Site: right antecubital; tl2 22:18 Follow up: IV Status: Completed infusion aa1 21:39 Drug: Cefepime 2 grams Route: IVPB; Rate: 200 ml/hr; Infused Over: 30 mins; Site: right tl2 antecubital; 22:24 Follow up: IV Status: Infusion continued upon admission aa1 22:15 Not Given (Other Intervention Used): Potassium Chloride 20 mEq PO once aa1 22:15 Drug: Potassium Chloride 20 mEq Route: PO; aa1 22:24 Follow up: Response: No adverse reaction; Medication administered at discharge. aa1 Outcome: 20:26 Decision to Hospitalize by Provider. terry 22:33 Admitted to Med/surg accompanied by tech, family with patient, via stretcher, room 222, tl2 with chart, Report called to [facility] 22:33 Condition: stable 22:33 Discharge instructions given to patient, family, Instructed on the need for admit. 22:35 Patient left the ED. tl2 Signatures: Dispatcher [employer] EDMS Siena Urrutia RN RN aa1 Ross Diaz MD MD cha Ballard, Brenda, RN RN bb Lopez, Melissa ml Knox, Taylor, RN RN tl2 Leo Bautista MD MD gs Love, Aleyda al2 Corrections: (The following items were deleted from the chart) 19:59 19:57 BP 219 / 75; Pulse 88bpm; Resp 18bpm; Spontaneous; Pulse Ox 94% RA; Temp 100.4F bb Oral; 67.13 kg Reported; Height 5 ft. 2 in. Reported; BMI: 27.0; Pain 9/10; bb
[2018-05-28] MEDS: ACETAMINOPHEN 500 MG TAB PO PRN (23:44)
[2018-05-29] MEDS ORDERED: TRAMADOL HCL 50 MG TAB PO PRN (00:46)
[2018-05-29] MEDS ORDERED: cloNIDine HCl 0.1 MG TAB PO ONE (01:00)
[2018-05-29] MEDS ORDERED: LENALIDOMIDE PO SCH (01:00)
[2018-05-29] MEDS ORDERED: HYDRALAZINE HCL 20 MG/ML VIAL IV PRN ×2 (01:02→01:06)
[2018-05-29 05:58] LABS: Absolute Lymphocytes (CBC) 1.2 K/uL (0.7-4.9); Absolute Monocytes 0.2 K/uL (0.1-1.3); Absolute Neutrophil 1.9 K/uL (1.8-8.0); Basophils % 0.3 % (0-1.3); Eosinophils % 2.3 % (0-4.4); Hematocrit 24.7 % (36.0-45.0); Lymphocytes % 34.7 % (15.3-44.8); MCH 34.1 pg (27.0-35.0); MCV 99.6 fL (80-100); MPV 8.9 fL (7.6-11.3); Monocytes % 6.8 % (3.3-12.3); RBC Red Blood Cell Count 2.48 M/uL (3.86-4.86)
[2018-05-29 06:17] LABS: Albumin 2.7 g/dL (3.4-5.0); Bilirubin Total 0.4 mg/dL (0.2-1.0); Magnesium 1.7 mg/dL (1.8-2.4); Phosphorus 3.7 mg/dL (2.5-4.9); Potassium 3.3 mmol/L (3.5-5.1); Protein, Total 4.9 g/dL (6.4-8.2)
[2018-05-29 06:37] LABS: Anisocytosis 1+; Blood Morphology Comment NOTED (NOT SEEN); Platelet Estimate DECR; Urine White Blood Cell Casts OK
--- NOTE | 2018-05-29 08:38 | P.HP ---
Certification for Inpatient Patient admitted to: Observation With expected LOS: <2 Midnights Patient will require the following post-hospital care: None Practitioner: I am a practitioner with admitting privileges, knowledge of patient current condition, hospital course, and medical plan of care. Services: Services provided to patient in accordance with Admission requirements found in Title 42 Section 412.3 of the Code of Federal Regulations Patient History Date of Service: 05/28/18 Reason for admission: cough and congestion along with fever History of Present Illness: Patient is a 83-year-old female who came into the hospital with cough and congestion. She has been having fever, shakes, and chills. She has the recent diagnosis of multiple myeloma and she states she has been on chemotherapy. She had been doing well up until a few days ago when the fever, cough, and congestion started. It has gotten progressively worse. Patient takes a lot of time to recall the information as she appears to be a little forgetful. In the emergency room, her workup revealed that she had some acute renal insufficiency along with clinical findings of a pneumonia even though her chest x-ray was negative. She did not have a leukopenia at this time. She will be admitted to the hospital for further treatment and a repeat chest x-ray in the morning. We may need to do a CT of the chest if her symptoms are not improving. Allergies codeine Allergy (Verified 05/28/18 23:42) Unknown lidocaine Allergy (Verified 05/28/18 23:42) Unknown procaine [From Novocain] Allergy (Verified 05/28/18 23:42) Unknown Home Medications: Allopurinol 1 tab PO TID 05/28/18 Apixaban [Eliquis] 1 tab PO BID 05/28/18 Aspirin [Aspirin EC 81 MG] 1 tab PO DAILY 05/28/18 Carvedilol [Coreg*] 1 tab PO BID 05/28/18 Gabapentin 1 cap PO TID 05/28/18 Lenalidomide [Revlimid] 1 cap PO SEECOM 05/28/18 Pravastatin Sodium 1 tab PO BEDTIME 05/28/18 Tramadol HCl [Ultram] 1 tab PO SEECOM PRN 05/28/18 cloNIDine HCl [Clonidine HCl] 1 tab PO SEECOM PRN 05/28/18 - Past Medical/Surgical History Has patient received pneumonia vaccine in the past: No Diabetic: No -: multiple myeloma -: kidney failure -: CHF -: bladder ca -: hystrectomy - Family History Father Medical History: Lung disease Mother Medical History: Heart disease - Social History Smoking Status: Never smoker Alcohol use: No CD- Drugs: No Caffeine use: Yes Place of Residence: Home Review of Systems 10-point ROS is otherwise unremarkable Physical Examination - Vital Signs Temperature: 97.0 F Blood Pressure: 165/74 Pulse: 65 Respirations: 18 Pulse Ox (%): 98 - Physical Exam General: Alert, In no apparent distress, Oriented x2 HEENT: Atraumatic, PERRLA, Mucous membr. moist/pink, EOMI, Sclerae nonicteric Neck: Supple, 2+ carotid pulse no bruit, No LAD, Without JVD or thyroid abnormality Respiratory: Diminished, Expiratory wheezes, Rhonchi/gurgles Cardiovascular: Regular rate/rhythm, Normal S1 S2, No murmurs Gastrointestinal: Normal bowel sounds, Soft and benign, Non-distended, No tenderness Musculoskeletal: No clubbing, No swelling, No tenderness Integumentary: No rashes Neurological: Normal gait, Normal speech, Normal tone, Sensation intact, Cranial nerves 3-12 intact, Normal affect, Abnormal strength Lymphatics: No axilla or inguinal lymphadenopathy - Studies Laboratory Data (last 24 hrs) 05/28/18 19:45: PT 18.0 H, INR 1.52, APTT 30.7 05/28/18 19:45: WBC 5.1, Hgb 9.5 L, Hct 28.6 L, Plt Count 160 05/28/18 19:45: Sodium 143, Potassium 3.3 L, BUN 21 H, Creatinine 1.70 H, Glucose 94, Total Bilirubin 0.4, AST 10 L, ALT 19, Alkaline Phosphatase 102, Amylase 74, Lipase 262 Assessment & Plan - Problems (Diagnosis) (1) Multiple myeloma Current Visit: Yes Status: Acute (2) Pneumonia Current Visit: Yes Status: Acute (3) Acute renal insufficiency Current Visit: Yes Status: Acute (4) Anemia Current Visit: Yes Status: Acute - Plan Plan: 1. Continue with IV antibiotics 2. Awaiting sputum and blood culture; procalcitonin level 3. Repeat chest x-ray in AM 4. Will order CT scan of the chest if pneumonia is not improving 5. DC Reverse isolation 6. Continue with nebs as needed 7. O2 per protocol 8. Continue with gentle hydration 9. Repeat labs including CBC and renal function in a.m. 10. GI and DVT prophylaxis Discharge Plan: Home Plan to discharge in: Greater than 2 days - Advance Directives Does patient have a Living Will: Yes Does patient have a Durable POA for Healthcare: Yes - Code Status/Comfort Care Code Status Assessed: Yes Code Status: Full Code Critical Care: No Time Spent Managing PTS Care (In Minutes): 50
[2018-05-29] MEDS ORDERED: GABAPENTIN 300 MG CAP PO SCH (09:00)
[2018-05-29] MEDS ORDERED: CEFTRIAXONE/SWI 1gm 1 GM/10 ML SYR IVP SCH (09:00)
[2018-05-29] MEDS ORDERED: ENOXAPARIN 30 MG/0.3 ML SQ SCH (09:00)
[2018-05-29] MEDS ORDERED: ALLOPURINOL 100 MG TAB PO SCH (09:00)
[2018-05-29] MEDS ORDERED: CARVEDILOL 6.25 MG TAB PO SCH (09:00)
[2018-05-29] MEDS ORDERED: ENOXAPARIN 40 MG/0.4 ML SQ SCH (09:00)
[2018-05-29] MEDS ORDERED: POTASSIUM 25 MEQ EFFERV TAB PO ONE (09:00)
[2018-05-29] MEDS ORDERED: APIXABAN 5 MG TABLET PO SCH (09:00)
[2018-05-29] MEDS ORDERED: ASPIRIN EC 81 MG TAB PO SCH (09:00)
[2018-05-29] MEDS ORDERED: AZITHROMYCIN IV 500 MG in NA CHLORIDE 0.9% 250 ML IVPB SCH (09:00)
[2018-05-29] MEDS ORDERED: CEFTRIAXONE 1 GM/NS 50 ML 1 GM/50 ML BAG IV SCH (09:00)
[2018-05-29] MEDS: ACETAMINOPHEN 500 MG TAB PO PRN (09:27)
[2018-05-29] MEDS ORDERED: PNEUMOCOCCAL VACCINE 0.5 ML IMVAC ONE (10:00)
[2018-05-29] MEDS ORDERED: MAGNESIUM SULFATE 1 gm IVPB 1 GM/100 ML BAG IV ONE (10:00)
--- NOTE | 2018-05-29 15:19 | P.SSS ---
Patient History Date of Service: 05/29/18 Reason for admission: cough and congestion along with fever History of Present Illness: Patient is a 83-year-old female who came into the hospital with cough and congestion. She has been having fever, shakes, and chills. She has the recent diagnosis of multiple myeloma and she states she has been on chemotherapy. She had been doing well up until a few days ago when the fever, cough, and congestion started. It has gotten progressively worse. Patient takes a lot of time to recall the information as she appears to be a little forgetful. In the emergency room, her workup revealed that she had some acute renal insufficiency along with clinical findings of a pneumonia even though her chest x-ray was negative. She did not have a leukopenia at this time. She will be admitted to the hospital for further treatment and a repeat chest x-ray in the morning. We may need to do a CT of the chest if her symptoms are not improving. Allergies codeine Allergy (Verified 05/28/18 23:42) Unknown lidocaine Allergy (Verified 05/28/18 23:42) Unknown procaine [From Novocain] Allergy (Verified 05/28/18 23:42) Unknown Home Medications: Allopurinol 1 tab PO TID 05/28/18 Apixaban [Eliquis] 1 tab PO BID 05/28/18 Aspirin [Aspirin EC 81 MG] 1 tab PO DAILY 05/28/18 Carvedilol [Coreg*] 1 tab PO BID 05/28/18 Gabapentin 1 cap PO TID 05/28/18 Lenalidomide [Revlimid] 1 cap PO SEECOM 05/28/18 Pravastatin Sodium 1 tab PO BEDTIME 05/28/18 Tramadol HCl [Ultram] 1 tab PO SEECOM PRN 05/28/18 cloNIDine HCl [Clonidine HCl] 1 tab PO SEECOM PRN 05/28/18 Azithromycin [Zithromax] 250 mg PO ZPAK #1 josephine 05/29/18 - Past Medical/Surgical History Has patient received pneumonia vaccine in the past: No Diabetic: No -: multiple myeloma -: kidney failure -: CHF -: bladder ca -: hystrectomy - Family History Father -: Lung disease Mother -: Heart disease - Social History Smoking Status: Never smoker Alcohol use: No CD- Drugs: No Caffeine use: Yes Place of Residence: Home Review of Systems General: As per HPI Physical Examination - Vital Signs Temperature: 99.0 F Blood Pressure: 167/73 Pulse: 69 Respirations: 18 Pulse Ox (%): 97 - Physical Exam General: Alert, In no apparent distress HEENT: Atraumatic, PERRLA, Mucous membr. moist/pink, EOMI, Sclerae nonicteric Neck: Supple, 2+ carotid pulse no bruit, No LAD, Without JVD or thyroid abnormality Respiratory: Clear to auscultation bilaterally, Normal air movement Cardiovascular: Regular rate/rhythm, Normal S1 S2 Gastrointestinal: Normal bowel sounds, No tenderness Musculoskeletal: No tenderness Integumentary: No rashes Neurological: Normal gait, Normal speech, Normal strength at 5/5 x4 extr, Normal tone, Normal affect Lymphatics: No axilla or inguinal lymphadenopathy - Studies Laboratory Data (last 24 hrs) 05/28/18 19:45: PT 18.0 H, INR 1.52, APTT 30.7 05/28/18 19:45: WBC 5.1, Hgb 9.5 L, Hct 28.6 L, Plt Count 160 05/28/18 19:45: Sodium 143, Potassium 3.3 L, BUN 21 H, Creatinine 1.70 H, Glucose 94, Total Bilirubin 0.4, AST 10 L, ALT 19, Alkaline Phosphatase 102, Amylase 74, Lipase 262 - Diagnosis (Problem(s)) (1) Pneumonia Current Visit: Yes Status: Ruled-out Plan: Bacterial PNA r/o -Mark negative -PE WNL -Procal negative -Most likely viral however given the risk Pt to be discharged on Zithromax Qualifiers: Pneumonia type: due to unspecified organism Laterality: unspecified laterality Lung location: unspecified part of lung Qualified Code(s): J18.9 - Pneumonia, unspecified organism (2) URI (upper respiratory infection) Current Visit: Yes Status: Acute Plan: Cough and congestion most likley 2.2 to URI -Now resolved. Doing well overall -Discuss case with Pulmonology. Agree with DC home with Zithromax -Hemeoncology notifed. pt to resume chemo on thursday after f/u with Hemoncology Qualifiers: Pharyngitis/tonsillitis etiology: unspecified etiology (3) Anemia Current Visit: Yes Status: Chronic Qualifiers: Anemia type: bone marrow failure Bone marrow failure anemia type: unspecified bone marrow failure Qualified Code(s): D61.9 - Aplastic anemia, unspecified (4) Multiple myeloma Current Visit: Yes Status: Chronic Qualifiers: Multiple myeloma remission status: not in remission Qualified Code(s): C90.00 - Multiple myeloma not having achieved remission - Disposition Disposition: ROUTINE DISCHARGE Condition: GOOD Diet: Regular Activity: Ad howie
[2018-05-29] MEDS ORDERED: APIXABAN 2.5 MG TABLET PO SCH (21:00)
[2018-05-29] MEDS ORDERED: ATORVASTATIN 10 MG TAB PO SCH (21:00)
--- NOTE | 2018-05-30 07:49 | EKG ---
Test Date: 2018-05-28 Test Time: 20:30:11 Dining Services Manager: DORCAS MEASUREMENT RESULTS: Intervals: Rate: 83 OR: 232 QRSD: 82 QT: 380 QTc: 446 [place]: P: 5 OR: 232 QRS: 46 T: 50 INTERPRETIVE STATEMENTS: Sinus rhythm with 1st degree AV block Nonspecific ST abnormality Abnormal ECG Compared to ECG 03/02/2016 06:59:38 First degree AV block now present ST (T wave) deviation now present Electronically Signed On 05-30-18 07:45:41 CDT by Martin Yanez
== END 2018-05-29 15:21 | disposition home or self-care (01) ==
LOC: ER 19:17 → ERHOLD 20:27 → 2ND 22:11
PROVIDERS: ADMIT Hospitalist; ATTEND Hospitalist
DX: J06.9 Acute upper respiratory infection, unspecified (principal); D61.9 Aplastic anemia, unspecified; C90.00 Multiple myeloma not having achieved remission; N28.9 Disorder of kidney and ureter, unspecified; Z79.82 Long term (current) use of aspirin; Z85.51 Personal history of malignant neoplasm of bladder
CPT/HCPCS: 36415; 71045; 80048; 80053; 80061; 80076; 82150; 82550; 82553; 83605; 83690; 83735; 84100; 84145; 84484; 85025 ×2; 85610; 85652; 85730; 86140; 87040 ×2; 87070; 87077; 87086; 87088; 87186; 87205; 87804 ×2; 93005; 94760 ×2; 96365 ×2; 96367 ×2; 99285; G0378 ×2; J0456 ×2; J0692; J0696 ×2; J1650; J3475; J7030 ×2; 81003; 81015; J0360

== ENCOUNTER 2018-08-01 23:31 | Emergency (ER) | payer OTHER ==
[2018-08-02 00:53] LABS: Absolute Lymphocytes (CBC) 1.1 K/uL (0.7-4.9); Absolute Monocytes 0.4 K/uL (0.1-1.3); Absolute Neutrophil 3.8 K/uL (1.8-8.0); Basophils % 1.5 % (0-1.3); Hematocrit 29.4 % (36.0-45.0); MCV 98.7 fL (80-100); MPV 11.2 fL (7.6-11.3); Monocytes % 7.7 % (3.3-12.3); RBC Red Blood Cell Count 2.98 M/uL (3.86-4.86)
[2018-08-02] MEDS ORDERED: LEVALBUTEROL 1.25 MG/3 ML NEB ONE (01:06)
[2018-08-02 01:20] LABS: Potassium 4.3 mmol/L (3.5-5.1)
[2018-08-02] MEDS ORDERED: NA CHLORIDE 0.9% 250 ML ONE (02:57)
[2018-08-02] MEDS ORDERED: Levofloxacin 750mg IV 750 MG/150 ML BAG IV ONE (02:58)
--- NOTE | 2018-08-02 03:24 | EDPHYS ---
Physician Documentation [facility] Name: Chen Zaldivar Age: 83 yrs Sex: Female : 1935 Arrival Date: 08/01/2018 Time: 23:32 Bed 2 Private MD: ED Physician Curt Vaz HPI: 08/02 01:58 This 83 yrs old Female presents to ER via Wheelchair with complaints of rn Fever, Cough. 01:58 Onset: The symptoms/episode began/occurred yesterday. Modifying factors: there are no rn obvious modifying factors. Severity of symptoms: At their worst the symptoms were mild in the emergency department the symptoms are unchanged. The patient has not experienced similar symptoms in the past. Reports fever, cough, for 24 hours, had chemo last week, has MM, concerned may have pneumonia. + chronic diarrhea, has to take immodium at times. No blood. . Historical: - Allergies: 00:08 Codeine; bb 00:08 Lidocaine; bb 00:08 Novocain; bb - Home Meds: 00:08 Chemo twice a week [Active]; Revlimid 5 mg Oral cap 1 cap [Active]; Eliquis 5 mg Oral bb tab 1 tab 2 times per day [Active]; carvedilol 25 mg oral tab 1 tab 2 times per day [Active]; tramadol 50 mg Oral tab 1 tab every 6 hours [Active]; pravastatin 10 mg Oral tab 1 tab once daily [Active]; gabapentin 300 mg Oral cap 1 cap 3 times per day [Active]; clonidine HCl 0.1 mg Oral tab 1 tab as needed [Active]; Trintellix 10 mg oral tab 1 tab once daily [Active]; spironolactone 25 mg Oral tab 0.5 tab once daily [Active]; D 3 25 mcg daily [Active]; Vitamin Oral tab 1 tab once daily [Active]; dexamethasone 4 mg Oral tab [Active]; - PMHx: 00:08 CHF; Hyperlipidemia; Hypertension; multiple myeloma; bb - PSHx: 00:08 Hysterectomy; bb - Immunization history:: Adult Immunizations up to date. - Social history:: Smoking status: Patient/guardian denies using tobacco, Patient/guardian denies using alcohol, street drugs. - Ebola Screening: : No symptoms or risks identified at this time. - Family history:: not pertinent. - Hospitalizations: : No recent hospitalization is reported. ROS: 02:00 Constitutional: Negative for weight loss Eyes: Negative for injury, pain, redness, and recording studio internship, Neck: Negative for injury, pain, and swelling, Cardiovascular: Negative for chest pain, palpitations, and edema, Respiratory: Negative for shortness of breath, wheezing, and pleuritic chest pain, Abdomen/GI: Negative for abdominal pain, nausea, vomiting, and constipation, MS/Extremity: Negative for injury and deformity, Skin: Negative for injury, rash, and discoloration, Neuro: Negative for headache, weakness, numbness, tingling, and seizure. Exam: 02:00 Constitutional: This is a well developed, well nourished patient who is awake, alert, rn and in no acute distress. Head/Face: Normocephalic, atraumatic. Eyes: Pupils equal round and reactive to light, extra-ocular motions intact. Lids and lashes normal. Conjunctiva and sclera are non-icteric and not injected. Cornea within normal limits. Periorbital areas with no swelling, redness, or edema. ENT: MMM, no stridor Cardiovascular: Regular rate and rhythm with a normal S1 and S2. No gallops, murmurs, or rubs. Normal PMI, no JVD. No pulse deficits. Respiratory: Lungs have equal breath sounds bilaterally, clear to auscultation and percussion. No rales, rhonchi or wheezes noted. No increased work of breathing, no retractions or nasal flaring. Abdomen/GI: soft, non-tender MS/ Extremity: Pulses equal, no cyanosis. Neurovascular intact. Full, normal range of motion. Equal circumference. Neuro: Awake and alert, GCS 15, oriented to person, place, time, and situation. Cranial nerves II-XII grossly intact. Motor strength 5/5 in all extremities. Sensory grossly intact. Vital Signs: 00:08 BP 194 / 73; Pulse 81; Resp 16 S; Temp 99(O); Pulse Ox 95% on R/A; Weight 63.05 kg (R); bb Height 5 ft. 2 in. (157.48 cm) (R); 01:00 BP 180 / 66; Pulse 72; Resp 18; Pulse Ox 93% on R/A; jb4 02:30 BP 182 / 88; Pulse 109; Resp 18; Pulse Ox 95% on R/A; jb4 03:00 BP 185 / 86; Pulse 76; Resp 15; Temp 99.2; Pulse Ox 96% ; jb4 03:23 BP 185 / 86; Pulse 76; Resp 16; rn 04:00 BP 193 / 83; Pulse 76; Resp 21; Temp 98.4(O); Pulse Ox 96% ; jb4 04:32 BP 189 / 70; Pulse 77; Resp 18; Pulse Ox 95% on R/A; jb4 00:08 Body Mass Index 25.42 (63.05 kg, 157.48 cm) bb MDM: 08/01 23:41 Patient medically screened. rn 08/02 03:20 Differential diagnosis: viral Infection, bacterial infection, URI, bronchitis, rn pneumonia. Data reviewed: vital signs, nurses notes, lab test result(s), EKG, radiologic studies, plain films, and as a result, I will discharge patient. Counseling: I had a detailed discussion with the patient and/or guardian regarding: the historical points, exam findings, and any diagnostic results supporting the discharge/admit diagnosis, lab results, radiology results, the need for outpatient follow up, to return to the emergency department if symptoms worsen or persist or if there are any questions or concerns that arise at home. Response to treatment: the patient's symptoms have markedly improved after treatment, and as a result, I will discharge patient. ED course: Pt improved, asleep, not much cough, improved vitals, after discussion with daughter, will dc home with levaquin given immunosuppressed, no obvious pneumonia of CXR, no benefit at this point for admission to hospital, and has appt today with Dr. Guillen. Patient states feels well and not sob. Return precautions given and understood. . 08/02 00:08 Order name: Blood Culture Adult (2) rn 08/02 00:08 Order name: BMP; Complete Time: 01:56 rn 08/02 00:08 Order name: CBC with Diff; Complete Time: 01:17 rn 08/02 00:08 Order name: NT PRO-BNP; Complete Time: 01:56 rn 08/02 00:08 Order name: Procalcitonin; Complete Time: 02:14 rn 08/02 00:08 Order name: Flu; Complete Time: 01:56 rn 08/02 00:08 Order name: XRAY CXR (1 view) rn 08/02 00:08 Order name: EKG; Complete Time: 00:09 rn 08/02 00:08 Order name: Cardiac monitoring; Complete Time: 00:44 rn 08/02 00:08 Order name: EKG - Nurse/Tech; Complete Time: 01:01 rn 08/02 00:08 Order name: IV Saline Lock; Complete Time: 00:45 rn 08/02 00:08 Order name: Labs collected and sent; Complete Time: 00:45 rn 08/02 00:08 Order name: O2 Per Protocol; Complete Time: 00:24 rn 08/02 00:08 Order name: O2 Sat Monitoring; Complete Time: 00:24 rn Administered Medications: 01:04 Drug: Xopenex 1.25 mg Route: Inhalation; jb4 01:30 Follow up: Response: No adverse reaction jb4 03:01 Drug: LevaQUIN 750 mg Volume: 150 ml; Route: IVPB; Infused Over: 90 mins; Site: left jb4 antecubital; 04:30 Follow up: Response: No adverse reaction; IV Status: Completed infusion jb4 03:01 Drug: NS 0.9% 250 ml Route: IV; Rate: 1 bolus; Site: left antecubital; jb4 03:30 Follow up: Response: No adverse reaction; IV Status: Completed infusion jb4 Disposition: 08/02/18 03:23 Discharged to Home. Impression: Cough, Bronchitis, not specified as acute or chronic. - Condition is Stable. - Discharge Instructions: Acute Bronchitis, Adult, Cough, Adult. - Prescriptions for Levaquin 750 mg Oral Tablet - take 1 tablet by ORAL route once daily for 10 days; 10 tablet. - Medication Reconciliation Form, Thank You Letter, Antibiotic Education, Prescription Opioid Use form. - Follow up: Private Physician; When: As needed; Reason: Recheck today's complaints, Re-evaluation by your physician. - Problem is new. - Symptoms have improved. Signatures: Dispatcher [employer] EDMS Radha Dawn RN RN bb Nieto, Roman, MD MD rn Bryson, James, RN RN jb4 Corrections: (The following items were deleted from the chart) 04:51 03:23 08/02/2018 03:23 Discharged to Home. Impression: Cough; Bronchitis, not specified jb4 as acute or chronic. Condition is Stable. Forms are Medication Reconciliation Form, Thank You Letter, Antibiotic Education, Prescription Opioid Use. Follow up: Private Physician; When: As needed; Reason: Recheck today's complaints, Re-evaluation by your physician. Problem is new. Symptoms have improved. rn
--- NOTE | 2018-08-02 03:24 | ER ---
Nurse's Notes [facility] Name: Chen Zaldivar Age: 83 yrs Sex: Female : 1935 Arrival Date: 08/01/2018 Time: 23:32 Bed 2 Private MD: Diagnosis: Cough;Bronchitis, not specified as acute or chronic Presentation: 08/01 23:59 Presenting complaint: pt's daughter states pt is cancer pt receiving chemo for multiple bb myeloma and started coughing, with fever, vomiting and diarrhea since 0200 yesterday morning. Transition of care: patient was not received from another setting of care. Onset of symptoms was August 01, 2018. Risk Assessment: Do you want to hurt yourself or someone else? Patient reports no desire to harm self or others. Initial Sepsis Screen: Does the patient meet any 2 criteria? No. Patient's initial sepsis screen is negative. Does the patient have a suspected source of infection? No. Patient's initial sepsis screen is negative. Care prior to arrival: None. 23:59 Method Of Arrival: Wheelchair bb 23:59 Acuity: HAYDEN 2 bb Triage Assessment: 08/02 00:46 General: Appears in no apparent distress. Behavior is calm, cooperative. ak1 Historical: - Allergies: 00:08 Codeine; bb 00:08 Lidocaine; bb 00:08 Novocain; bb - Home Meds: 00:08 Chemo twice a week [Active]; Revlimid 5 mg Oral cap 1 cap [Active]; Eliquis 5 mg Oral bb tab 1 tab 2 times per day [Active]; carvedilol 25 mg oral tab 1 tab 2 times per day [Active]; tramadol 50 mg Oral tab 1 tab every 6 hours [Active]; pravastatin 10 mg Oral tab 1 tab once daily [Active]; gabapentin 300 mg Oral cap 1 cap 3 times per day [Active]; clonidine HCl 0.1 mg Oral tab 1 tab as needed [Active]; Trintellix 10 mg oral tab 1 tab once daily [Active]; spironolactone 25 mg Oral tab 0.5 tab once daily [Active]; D 3 25 mcg daily [Active]; Vitamin Oral tab 1 tab once daily [Active]; dexamethasone 4 mg Oral tab [Active]; - PMHx: 00:08 CHF; Hyperlipidemia; Hypertension; multiple myeloma; bb - PSHx: 00:08 Hysterectomy; bb - Immunization history:: Adult Immunizations up to date. - Social history:: Smoking status: Patient/guardian denies using tobacco, Patient/guardian denies using alcohol, street drugs. - Ebola Screening: : No symptoms or risks identified at this time. - Family history:: not pertinent. - Hospitalizations: : No recent hospitalization is reported. Screenin:46 Abuse screen: Denies threats or abuse. Denies injuries from another. Nutritional ak1 screening: No deficits noted. Tuberculosis screening: No symptoms or risk factors identified. Fall Risk None identified. Assessment: 00:10 General: Appears in no apparent distress. comfortable, Behavior is calm, cooperative, jb4 appropriate for age. Pain: Denies pain. Neuro: Level of Consciousness is awake, alert, obeys commands, Oriented to person, place, time, situation. Cardiovascular: Heart tones S1 S2 present Patient's skin is warm and dry. Respiratory: Airway is patent Respiratory effort is even, unlabored, Respiratory pattern is regular, symmetrical, Breath sounds are clear bilaterally. GI: Reports diarrhea, nausea, vomiting. : No signs and/or symptoms were reported regarding the genitourinary system. EENT: No signs and/or symptoms were reported regarding the EENT system. Derm: Skin is intact, Skin is pink, warm \T\ dry. Musculoskeletal: Circulation, motion, and sensation intact. 01:00 Reassessment: Patient appears in no apparent distress at this time. Patient and/or jb4 family updated on plan of care and expected duration. Pain level reassessed. Patient is alert, oriented x 3, equal unlabored respirations, skin warm/dry/pink. 02:39 Reassessment: Patient appears in no apparent distress at this time. Patient and/or jb4 family updated on plan of care and expected duration. Pain level reassessed. Patient is alert, oriented x 3, equal unlabored respirations, skin warm/dry/pink. Provider at the bedside. 03:24 Reassessment: Patient appears in no apparent distress at this time. Patient and/or jb4 family updated on plan of care and expected duration. Pain level reassessed. Patient is alert, oriented x 3, equal unlabored respirations, skin warm/dry/pink. 04:29 Reassessment: Patient appears in no apparent distress at this time. Patient and/or jb4 family updated on plan of care and expected duration. Pain level reassessed. Patient is alert, oriented x 3, equal unlabored respirations, skin warm/dry/pink. Waiting for Levaquin to finish before discharge. Vital Signs: 00:08 BP 194 / 73; Pulse 81; Resp 16 S; Temp 99(O); Pulse Ox 95% on R/A; Weight 63.05 kg (R); bb Height 5 ft. 2 in. (157.48 cm) (R); 01:00 BP 180 / 66; Pulse 72; Resp 18; Pulse Ox 93% on R/A; jb4 02:30 BP 182 / 88; Pulse 109; Resp 18; Pulse Ox 95% on R/A; jb4 03:00 BP 185 / 86; Pulse 76; Resp 15; Temp 99.2; Pulse Ox 96% ; jb4 03:23 BP 185 / 86; Pulse 76; Resp 16; rn 04:00 BP 193 / 83; Pulse 76; Resp 21; Temp 98.4(O); Pulse Ox 96% ; jb4 04:32 BP 189 / 70; Pulse 77; Resp 18; Pulse Ox 95% on R/A; jb4 00:08 Body Mass Index 25.42 (63.05 kg, 157.48 cm) ED Course: 08/01 23:32 Patient arrived in ED. es 23:41 Curt Vaz MD is Attending Physician. rn 23:45 Cosme Yoon, JULIET is Primary Nurse. jb4 08/02 00:03 Triage completed. bb 00:08 Arm band placed on Patient placed in an exam room, on a stretcher, on pulse oximetry. bb Family accompanied patient. 00:45 Inserted saline lock: 20 gauge in left antecubital area, using aseptic technique. Blood ak1 collected. 00:46 Patient has correct armband on for positive identification. Placed in gown. Bed in low ak1 position. Call light in reach. Side rails up X 1. playground monitor on. Pulse ox on. NIBP on. 01:24 X-ray completed. Portable x-ray completed in exam room. Patient tolerated procedure kw well. 01:26 XRAY CXR (1 view) In Process Unspecified. EDMS 04:49 No provider procedures requiring assistance completed. IV discontinued, intact, jb4 bleeding controlled. Administered Medications: 01:04 Drug: Xopenex 1.25 mg Route: Inhalation; jb4 01:30 Follow up: Response: No adverse reaction jb4 03:01 Drug: LevaQUIN 750 mg Volume: 150 ml; Route: IVPB; Infused Over: 90 mins; Site: left jb4 antecubital; 04:30 Follow up: Response: No adverse reaction; IV Status: Completed infusion jb4 03:01 Drug: NS 0.9% 250 ml Route: IV; Rate: 1 bolus; Site: left antecubital; jb4 03:30 Follow up: Response: No adverse reaction; IV Status: Completed infusion jb4 Outcome: 03:23 Discharge ordered by . rn 04:49 Discharged to home ambulatory. jb4 04:49 Condition: stable 04:49 Discharge instructions given to patient, family, Instructed on discharge instructions, follow up and referral plans. medication usage, Demonstrated understanding of instructions, follow-up care, medications, Prescriptions given X 1. 04:51 Patient left the ED. jb4 Signatures: Dispatcher [employer] Bre Hernandes Brenda, RN RN Curt Francisco MD MD rn Whitley, Kimberlee kw Krenek, Amber, RN RN akCosme Brody RN RN jb4 Corrections: (The following items were deleted from the chart) 01:45 00:47 GI: ak1 jb4 02:39 02:00 Reassessment: Patient appears in no apparent distress at this time. Patient jb4 and/or family updated on plan of care and expected duration. Pain level reassessed. Patient is alert, oriented x 3, equal unlabored respirations, skin warm/dry/pink. jb4
--- NOTE | 2018-08-02 08:25 | RAD REPORT ---
EXAM DESCRIPTION: RAD - Chest Single View - 08/02/2018 1:29 am CLINICAL HISTORY: Cough, fever, vomiting and diarrhea COMPARISON: May 28 TECHNIQUE: AP portable chest image was obtained 0114 hours . FINDINGS: No peripheral mass, consolidation or significant failure finding. Patient has a mild basel ine prominence of the interstitial markings. Central vasculature is mildly prominent but not clearly different. Lung markings are fractionally increased in each lung base. This is a subtle difference bu t minimal interstitial edema or infiltrate would be possible. Heart size is upper normal and stable. Upper lobe vasculature within normal limits. No measurable pleural effusion and no pneumothorax. No a cute bony abnormality seen. No acute aortic findings suspected. IMPRESSION: No peripheral mass or consolidation seen. The patient's heart, vasculature and lung markings are all mildly prominent. Pattern is not substanti ally different from prior imaging. Minimal interstitial edema or infiltrate in each base is possible. Patient could have a mild or very minimal failure or volume overload developing.
--- NOTE | 2018-08-02 09:01 | EKG ---
Test Date: 2018-08-02 Test Time: 00:58:48 Livestock Feeder: MARCI MEASUREMENT RESULTS: Intervals: Rate: 76 [place]: 134 QRSD: 82 QT: 404 QTc: 454 [place]: P: -23 W[place]: 134 QRS: 26 T: 21 INTERPRETIVE STATEMENTS: Normal sinus rhythm Minimal voltage criteria for LVH, may be normal variant Nonspecific ST abnormality Abnormal ECG Compared to ECG 05/28/2018 20:30:11 Left ventricular hypertrophy now present First degree AV block no longer present ST (T wave) deviation still present Electronically Signed On 08-02-18 09:00:04 CDT by Eliot Noble
== END 2018-08-02 04:51 | disposition home or self-care (01) ==
LOC: ER 23:31
DX: J40 Bronchitis, not specified as acute or chronic (principal); I10 Essential (primary) hypertension; C90.00 Multiple myeloma not having achieved remission; I50.9 Heart failure, unspecified; E78.5 Hyperlipidemia, unspecified; Z79.01 Long term (current) use of anticoagulants; Z88.5 Allergy status to narcotic agent
CPT/HCPCS: 36415; 71045; 80048; 83880; 84145; 85025; 87040; 87804; 93005; 96365; 96368; 99285